=== PATIENT | male | born 1965 | race Caucasian/White ===

== ENCOUNTER 2017-05-12 09:48 | Outpatient (CLI) | payer OTHER, BC ==
[~2017-05-12] VITALS: Ht 193 cm; Wt 119.3 kg
[~2017-05-12 09:48] MED LIST: AMOX-355 PO; CHOL10003 PO; CPR500T PO; DEXL60CA5 PO; DUTA1CPM PO; FINA5TAB PO; HYDR-3729 PO; LANS15CA PO; LYSI1000 PO; MULT-557 PO; NF-ESOM40C PO; OMEP-10 PO; OXYC-12 PO; PNT40TEC PO; SCR1T1 PO; TEST1.25 TD
[2017-05-12 10:01] VITALS: BP 150/95
[2017-05-12] MEDS ORDERED: FINA5TAB6 PO (10:05)
[2017-05-12 10:32] LABS: BASOPHILS % (AUTO) 0 % (0-10); EOSINOPHILS # (AUTO) 0.1 10^3/uL (0.0-0.3); EOSINOPHILS % (AUTO) 2 % (0-10); LYMPHOCYTES # (AUTO) 1.1 X 10^3 (1.0-4.0); LYMPHOCYTES % (AUTO) 20 % (12-44); MEAN CORPUSCULAR HEMOGLOBIN 31 PG (25-34); MEAN CORPUSCULAR HGB CONC 34 G/DL (32-36); MEAN CORPUSCULAR VOLUME 90 FL (80-99); MEAN PLATELET VOLUME 9.7 FL (7.4-10.4); MONOCYTES # (AUTO) 0.7 X 10^3 (0.0-1.0); MONOCYTES % (AUTO) 13 % (0-12); NEUTROPHILS # (AUTO) 3.6 X 10^3 (1.8-7.8); NEUTROPHILS % (AUTO) 64 % (42-75); PLATELET COUNT 228 10^3/uL (130-400); RED BLOOD COUNT 5.23 10^6/uL (4.35-5.85); RED CELL DISTRIBUTION WIDTH 12.7 % (10.0-14.5); WHITE BLOOD COUNT 5.5 10^3/uL (4.3-11.0)
[2017-05-12 10:51] LABS: ANION GAP 8 MMOL/L (5-14); BLOOD UREA NITROGEN 12 MG/DL (7-18); BUN/CREATININE RATIO 10; CALCIUM 9.6 MG/DL (8.5-10.1); CARBON DIOXIDE 25 MMOL/L (21-32); CHLORIDE 104 MMOL/L (98-107); CREATININE SERUM 1.21 MG/DL (0.60-1.30); GFR ESTIMATED > 60; GLUCOSE 100 MG/DL (70-105); POTASSIUM 5.1 MMOL/L (3.6-5.0); SODIUM 137 MMOL/L (135-145)
== END 2017-05-12 10:20 | disposition home or self-care (01) ==
LOC: PREOP 09:48
PROVIDERS: ATTEND Otolaryngology Otolaryngology/Facial Plastic Surgery
DX: Z01.812 Encounter for preprocedural laboratory examination (principal); Z11.2 Encounter for screening for other bacterial diseases; S02.2XXA Fracture of nasal bones, initial encounter for closed fracture; X58.XXXA Exposure to other specified factors, initial encounter
CPT/HCPCS: 36415; 80048; 85025; 87081

== ENCOUNTER 2017-05-18 06:28 | Day surgery (SDC) | payer OTHER, BC ==
[~2017-05-18] VITALS: Ht 193 cm; Wt 119.3 kg
[~2017-05-18 06:28] MED LIST changes: +FINA5TAB6 PO
[2017-05-18] MEDS ORDERED: ONDANSETRON 4 MG/2 ML (SDV) Z0FRAN ONE ×2 (06:52→07:21)
[2017-05-18] MEDS ORDERED: SCOPOLAMINE 1.5 MG (TRANSDERM-SCOP) PATCH ONE (06:52)
[2017-05-18] MEDS ORDERED: LACTATED RINGERS 1,000 ML IV PRN (07:00)
[2017-05-18] MEDS ORDERED: ONDANSETRON 4 MG/2 ML (SDV) Z0FRAN IV ONE (07:00)
[2017-05-18] MEDS ORDERED: SCOPOLAMINE 1.5 MG (TRANSDERM-SCOP) PATCH TOP ONE (07:00)
[2017-05-18] MEDS ORDERED: MUPIROCIN 2% OINT 22 GM (BACTROBAN) TUBE ONE (07:19)
[2017-05-18] MEDS ORDERED: LIDOCAINE/EPI 1%-1:200,000 (XYLOCAINE) 30 ML VIAL ONE (07:19)
[2017-05-18] MEDS ORDERED: COCAINE HCL 4% 2 ML SYR ONE (07:19)
--- NOTE | 2017-05-18 07:19 | Progress Note-Pre Operative ---
Pre-Operative Progress Note H&P Reviewed The H&P was reviewed, patient examined and no changes noted. Date Seen by Provider: May 18, 2017 Time Seen by Provider: 06:45 Date H&P Reviewed: May 18, 2017 Time H&P Reviewed: 06:45 Pre-Operative Diagnosis: Displaced Nasal Fracture ISHA MANLEY MD May 18, 2017 7:19 am
[2017-05-18] MEDS ORDERED: proPOfol 200 MG/20 ML (DIPRIVAN) VIAL IV ONE (07:21)
[2017-05-18] MEDS ORDERED: fentaNYL INJECTION 100 MCG/2 ML AMP ONE (07:21)
[2017-05-18] MEDS ORDERED: LIDOCAINE PF 2% 5 ML (XYLOCAINE) VIAL ONE (07:21)
[2017-05-18] MEDS ORDERED: LACTATED RINGERS 1,000 ML IV ONE (07:21)
[2017-05-18] MEDS ORDERED: DEXAMETHASONE 10 MG/ML (DECADRON) 1 ML VIAL ONE (07:21)
[2017-05-18] MEDS ORDERED: SEVOFLURANE (ULTANE) 15 ML INHAL SOLN ONE ×2 (07:21→12:16)
[2017-05-18] MEDS ORDERED: MIDAZOLAM 2 MG/2 ML (VERSED) VIAL ONE (07:22)
[2017-05-18 07:24] VITALS: BP 152/97
--- NOTE | 2017-05-18 08:02 | Progress Note-Post Operative ---
Post-Operative Progess Note Surgeon (s)/Operator Specialist Communications (s) Surgeon ISHA MANLEY MD Operator Specialist Communications n/a Pre-Operative Diagnosis Displaced Nasal Fracture Post-Operative Diagnosis same Post-Op Procedure Note Date of Procedure: May 18, 2017 Name of Procedure Performed: Closed Reduction of Nasal Fracture Description & Findings Description and Findings: n/a Anesthesia Type lma Estimated Blood Loss minimal Packing none. Specimen(s) collected/removed none ISHA MANLEY MD May 18, 2017 8:02 am
[2017-05-18] MEDS ORDERED: HYDROcodone/APAP 5 MG/325 MG (LORTAB) TAB PO PRN (08:15)
[2017-05-18] MEDS ORDERED: ACETAMINOPHEN 325 MG TABLET/CAPLET (TYLENOL) PO PRN (08:15)
[2017-05-18 08:55] VITALS: BP 143/89
[2017-05-18] MEDS ORDERED: HYDR-3812 PO (09:13)
[2017-05-18 09:25] VITALS: BP 138/81
[2017-05-18 09:55] VITALS: BP 134/91
== END 2017-05-18 10:15 | disposition home or self-care (01) ==
LOC: SDC 06:28
PROVIDERS: ATTEND Otolaryngology Otolaryngology/Facial Plastic Surgery
DX: S02.2XXA Fracture of nasal bones, initial encounter for closed fracture (principal); X58.XXXA Exposure to other specified factors, initial encounter

== ENCOUNTER 2018-11-08 06:51 | Emergency (ER) | payer OTHER, BC ==
[~2018-11-08] VITALS: Ht 193 cm; Wt 111.1 kg
[~2018-11-08 06:51] MED LIST changes: +ACHD5005 PO
--- OUTSIDE RECORDS SUMMARY | 2018-11-08 06:57 | XMS REPORT | Clinical Summary ---
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 Disp. Refills Start End Date Status Date ABHINAV 0.5-0.4 mg CM24 Take by mouth. 90 07/16/20 Active 13 zolpidem (AMBIEN) 10 mg Take by mouth. 30 10/16/19 Active tablet 14 CIALIS 5 mg tablet Take by mouth. 30 10/21/19 Active 14 ANDROGEL 20.25 mg/1.25 APPLY 6 PUMPS 7.5 GRAMS 225 03/20/20 Active gram (1.62 %) GlPm QD 12 Active Problems Problem Noted Date Esophageal reflux 10/29/2013 Brachial neuritis or radiculitis 06/26/2013 Overview: ICD-10 conversion Migraine with aura 06/26/2013 Overview: ICD-10 conversion Breast Lump 03/14/2012 Cluster headache syndrome 01/17/2012 Overview: ICD-10 conversion Irritable bowel syndrome 01/17/2012 Family History Medical History Relation Name Comments Breast cancer Other Family History; Breast Cancer; Diabetes Other Family History; Diabetes Mellitus; Relation Name Status Comments Other Social History Tobacco Use Types Packs/Day Years Used Date Never Smoker Sex Assigned at Date Recorded Not on file Last Filed Vital Signs Vital Sign Reading Time Taken Blood Pressure 151/82 10/29/2013 11:00 AM [employer] Pulse 67 10/29/2013 11:00 AM [employer] Temperature 36.8 C (98.2 F) 10/29/2013 11:00 AM [employer] Respiratory Rate - - Oxygen Saturation - - Inhaled Oxygen - - Concentration Weight 117 kg (258 lb) 10/29/2013 11:00 AM [employer] Height 193 cm (6' 4") 06/26/2013 10:10 AM CDT Body Mass Index 31.4 10/29/2013 11:00 AM [employer] Plan of Treatment Date Type Specialty Care Team Description 2018 Initial consult [place] [address] [address] [facility] [address] [place] [address] [phone] Results Not on filefrom Last 3 Months
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
--- NOTE | 2018-11-08 07:25 | NUR ---
SOFT CONTACT FROM [facility] REMOVED BY PT.
[2018-11-08 07:26] LABS: BASOPHILS % (AUTO) 0 % (0-10); EOSINOPHILS # (AUTO) 0.1 10^3/uL (0.0-0.3); EOSINOPHILS % (AUTO) 2 % (0-10); HEMATOCRIT 44 % (40-54); HEMOGLOBIN 15.9 G/DL (13.3-17.7); LYMPHOCYTES # (AUTO) 1.2 X 10^3 (1.0-4.0); LYMPHOCYTES % (AUTO) 19 % (12-44); MEAN CORPUSCULAR HEMOGLOBIN 33 PG (25-34); MEAN CORPUSCULAR HGB CONC 36 G/DL (32-36); MEAN CORPUSCULAR VOLUME 91 FL (80-99); MEAN PLATELET VOLUME 9.3 FL (7.4-10.4); MONOCYTES # (AUTO) 0.8 X 10^3 (0.0-1.0); MONOCYTES % (AUTO) 12 % (0-12); NEUTROPHILS # (AUTO) 4.2 X 10^3 (1.8-7.8); NEUTROPHILS % (AUTO) 67 % (42-75); PLATELET COUNT 220 10^3/uL (130-400); RED CELL DISTRIBUTION WIDTH 13.2 % (10.0-14.5); WHITE BLOOD COUNT 6.3 10^3/uL (4.3-11.0)
[2018-11-08 07:43] LABS: ALANINE AMINOTRANSFERASE 27 U/L (0-55); ALBUMIN 4.4 GM/DL (3.2-4.5); ALKALINE PHOSPHATASE 54 U/L (40-136); BILIRUBIN,TOTAL 0.7 MG/DL (0.1-1.0); BUN/CREATININE RATIO 12; CALCIUM 9.2 MG/DL (8.5-10.1); CARBON DIOXIDE 18 MMOL/L (21-32); CHLORIDE 107 MMOL/L (98-107); CREATININE SERUM 1.04 MG/DL (0.60-1.30); GFR ESTIMATED > 60; GLUCOSE 111 MG/DL (70-105); SODIUM 137 MMOL/L (135-145); TOTAL PROTEIN 7.7 GM/DL (6.4-8.2)
--- NOTE | 2018-11-08 07:56 | Diagnostic Imaging Report ---
PROCEDURE: CT head, face, and cervical spine without contrast. TECHNIQUE: Multiple contiguous axial images were obtained through the head, neck, and facial bones without the use of intravenous contrast. Sagittal and coronal reformations through the cervical spine and facial bones were also performed. INDICATION: Head injury. COMPARISON: None. FINDINGS: CT head and maxillofacial: No intracranial hemorrhage, mass effect, hydrocephalus or extra-axial fluid collections. No CT evidence of a territorial infarction. Mild mucosal thickening in the right maxillary sinus. The mastoids are clear. No maxillofacial fractures. Skull base and calvarium are intact. CT cervical spine: Normal alignment. Vertebral body heights preserved. No fractures. There are postoperative findings of anterior fusion at C4-C5 and C6-C7. Hardware components are intact. No evidence of loosening. Osteophytic ridging appears results in at least mild spinal canal narrowing at C5-C6 and C6-C7. The visualized paravertebral soft tissues are unremarkable. Lung apices are clear. IMPRESSION: 1. No acute intracranial or cervical spine CT findings. 2. No maxillofacial fractures. Dictated by: Dictated on workstation # [id number]
[2018-11-08] MEDS ORDERED: IBUPROFEN 600 MG (MOTRIN) TAB PO ONE ×2 (08:20→08:30)
--- NOTE | 2018-11-08 08:46 | NUR ---
PT VAN TO TAKE PT TO DR ROBERTS'S OFFICE FROM ED
[2018-11-08 09:18] VITALS: BP 155/88
== END 2018-11-08 09:18 | disposition home or self-care (01) ==
LOC: EDUNIT# 06:51 → ER 06:54
DX: S09.90XA Unspecified injury of head, initial encounter (principal); S05.91XA Unspecified injury of right eye and orbit, initial encounter; R40.2142 Coma scale, eyes open, spontaneous, at arrival to emergency department; R40.2252 Coma scale, best verbal response, oriented, at arrival to emergency department; R40.2362 Coma scale, best motor response, obeys commands, at arrival to emergency department; Z98.1 Arthrodesis status; Z88.2 Allergy status to sulfonamides; Z79.52 Long term (current) use of systemic steroids; Z90.89 Acquired absence of other organs; Z98.890 Other specified postprocedural states; W20.8XXA Other cause of strike by thrown, projected or falling object, initial encounter; Y92.410 Unspecified street and highway as the place of occurrence of the external cause
CPT/HCPCS: 36415; 70450; 70486; 72125; 80053; 85025